=== PATIENT | male | born 1965 ===

== ENCOUNTER 2017-05-11 09:01 | Day surgery (SDC) | payer OTHER ==
[2017-05-11 09:26] VITALS: BMI 30.7
[2017-05-11] MEDS ORDERED: Lactated Ringer's 500 ML IV ONE (09:28)
[2017-05-11] MEDS ORDERED: Propofol 10 mg/ml Inj (20 ML) ONE (10:32)
[2017-05-11 10:54] VITALS: TEMP 97.5
[2017-05-11 11:13] VITALS: BP 101/68; PULSE 61; RESP 20; O2SAT 98
== END 2017-05-11 11:51 | disposition home or self-care (01) ==
LOC: H.ENDO 09:01
PROVIDERS: ATTEND Internal Medicine Gastroenterology
DX: Z12.11 Encounter for screening for malignant neoplasm of colon (principal); K64.8 Other hemorrhoids; L40.9 Psoriasis, unspecified; M19.90 Unspecified osteoarthritis, unspecified site; Z91.09 Other allergy status, other than to drugs and biological substances